=== PATIENT | male | born 1955 | race Caucasian/White ===

== ENCOUNTER 2020-10-03 14:44 | Emergency (ER) | payer OTHER, MEDICARE ==
[~2020-10-03] VITALS: Ht 175.3 cm; Wt 95.2 kg
[~2020-10-03 14:44] MED LIST: ASPI81EC; CEPH500; DOCU100; HYDMOR2 PO; IBUP800 PO; NAPR220 PO; OXYACE5T; PRED10
[2020-10-03] MEDS ORDERED: CEPH500 PO (17:03)
== END 2020-10-03 17:50 | disposition home or self-care (01) ==
LOC: ER 14:44
DX: S62.635B Displaced fracture of distal phalanx of left ring finger, initial encounter for open fracture (principal); W29.8XXA Contact with other powered hand tools and household machinery, initial encounter
CPT/HCPCS: 12001; 96365-59; 99283-25; J0690

== ENCOUNTER 2022-01-01 10:43 | Inpatient (IN) | payer OTHER ==
[~2022-01-01] VITALS: Ht 175.3 cm; Wt 95.2 kg
[~2022-01-01 10:43] MED LIST changes: +CEPH500 PO
[2022-01-01 10:56] LABS: BASOPHILS ABSOLUTE AUTO 0.05 K/mm3 (0.00-0.23); BASOPHILS PERCENT AUTO 1 % (0-2); EOSINOPHILS ABSOLUTE AUTO 0.13 K/mm3 (0.00-0.68); EOSINOPHILS PERCENT AUTO 2 % (0-6); Hematocrit 43.8 % (37.0-53.0); Hemoglobin 15.1 g/dL (13.5-17.5); IMMATURE GRAN ABSOLUTE AUTO 0.04 K/mm3 (0.00-0.10); IMMATURE GRAN PERCENT AUTO 1 % (0-1); LYMPHOCYTES ABSOLUTE AUTO 2.89 K/mm3 (0.84-5.20); LYMPHOCYTES PERCENT AUTO 39 % (21-46); MONOCYTES ABSOLUTE AUTO 0.71 K/mm3 (0.16-1.47); MONOCYTES PERCENT AUTO 10 % (4-13); Mean Corpuscular HGB 30.2 pg (26.0-34.0); Mean Corpuscular HGB Conc 34.5 g/dL (31.5-36.5); Mean Corpuscular Volume 88 fL (80-100); Mean Platelet Volume 10.8 fL (9.1-12.4); NEUTROPHILS ABSOLUTE AUTO 3.58 K/mm3 (1.96-9.15); NEUTROPHILS PERCENT AUTO 48 % (41-73); Platelet Count 173 K/mm3 (150-400); RDW Coefficient Variation 12.8 % (11.7-14.2); RDW Standard Deviation 40.9 fL (35.1-46.3)
[2022-01-01 11:18] LABS: International Normalized Ratio 0.98; Prothrombin Time Results 10.3 Sec (9.7-11.5)
[2022-01-01 11:21] LABS: Albumin, Blood 3.7 g/dL (3.4-5.0); Bilirubin, Total 0.6 mg/dL (0.1-1.0); Bun/Creatinine Ratio 22.9 (12.0-20.0); Calcium, Blood 8.9 mg/dL (8.5-10.1); Creatinine, Blood 0.92 mg/dL (0.60-1.20); Globulin, Blood 3.8 g/dL (2.2-4.0); Potassium, Blood 3.9 mmol/L (3.5-5.5); Total Protein, Blood 7.5 g/dL (6.4-8.2)
[2022-01-01] MEDS ORDERED: TAMS.4ER PO (12:09)
[2022-01-01] MEDS ORDERED: ALLEGRA ALLERGY60 MG PO (12:09)
[2022-01-01] MEDS ORDERED: MONT10T PO (12:09)
[2022-01-01 12:59] LABS: Source, Urine Clean Catch
[2022-01-01 13:01] LABS: Appearance, Urine Clear (Clear); Bilirubin, Urine Neg (Neg); Blood, Urine Neg (Neg); Color, Urine Yellow (P-Yellow); Glucose Qualitative, Urine Neg (Neg); Ketones, Urine Neg (Neg); Leukocyte Esterase, Urine Neg (Neg); Nitrite, Urine Neg (Neg); Protein, Urine Neg (Neg); Urobilinogen, Urine NORM (Normal)
[2022-01-01] MEDS ORDERED: FLUTICASONE-SA1 EAC1 INH (17:42)
[2022-01-01] MEDS ORDERED: MELATONIN5 M1 PO (17:44)
[2022-01-01] MEDS ORDERED: AKWA Tears15 ML (17:44)
[2022-01-01] MEDS ORDERED: AZELASTINE137 MCG/06 (17:46)
[2022-01-01] MEDS ORDERED: ZADITOR5 M1 OP (17:46)
--- NOTE | 2022-01-01 18:41 | NUR ---
SHIFT SUMMARY PT ADMITTED FROM THE ED DUE TO R RIB FX, STERNAL FX, AND PNEUMO. PT DENIES THE NEED FOR NARCOTIC PAIN MEDICATION AND MADE HIS WISHES KNOWN TO THE SURGEON. PT TO GET ANOTHER SET X-RAYS IN THE MORNING. VSS.
[2022-01-01] MEDS ORDERED: Flonase 0.05% N16 GM (21:38)
--- NOTE | 2022-01-02 05:25 | NUR ---
SHIFT SUMMARY NO ACUTE CHANGES OVERNIGHT, PT HAS BEEN BREATHING EASILY ON 2L NC, PT REPORTS ITS HARD TO GET DEEP BREATHS IN DUE TO THE PAIN, BUT DOES NOT REPORT SOB. BREATHING APPEARS E/U. LUNG SOUNDS DIMINISHED. PT ON TENZIN BIOX SATS WNL. PT MEDICATED WITH A MUSCLE RELAXER THIS SHIFT, BUT ADAMANT THAT HE DOES NOT WANT TO TAKE TYLENOL OR NARCOTICS. VITALS ARE STABLE, PLAN IS FOR ANOTHER X-RAY TODAY. BED IN LOWEST POSITION, CALL LIGHT WITHIN REACH.
--- NOTE | 2022-01-02 15:02 | NUR ---
Pt. is awake in bed and welcomes my visit. Pt. is pleasant but mildly unsettled about the prognosis of his collapsed young. Listen empathetically with a calming presence while rapport is established. Pt. displays evidence of being engaged and hopeful. Facilitated a lengthy life review. Prayed with Pt. Pt. shook my hand and verbalized gratitude for the spiritual care visit.
--- NOTE | 2022-01-02 17:01 | NUR ---
AMBULATING IN ROOM AND CLARK WITH WALKER. STEADY GAIT. PT HAS DECLINED OFFERS OF PAIN MEDS OTHER THAN MOTRIN. PT REPORTS PAINFUL IN "RIBS" AND LEFT SHOULDER WITH OVEMENT AND DEEP BREATHING. CONT BIOX IN PLACE, PT DENIES SOB. USING IS HOURLY.
--- NOTE | 2022-01-03 01:30 | NUR ---
assumed care of pt after receiving report from previous RN Catracho. pt sleeping in room, has asked to be left undisturbed. this rn poked head in room, bed in lowest position, call light within reach
--- NOTE | 2022-01-03 03:44 | NUR ---
ambulating in hallway, provided with po fluids, up in chair, a/o x 4, pleasant/cooperative, rates pain at 2/10 prior to ambulation, 3-4/10 following. provided analgesia per mar
--- NOTE | 2022-01-03 10:33 | NUR ---
PATIENT AMBULATING IN CLARK WITH WALKER. PT IS AMBULATING HOLDING HIS DOG ON A LEASH. DISCUSSWD SAFETY WITH PATIENT AND THAT HE SHOULD NOT BE WALKING HIS DOG WHILE AMBULATING DUE TO FALL RISK
--- NOTE | 2022-01-03 14:06 | NUR ---
PATIENT ASSISTED WITH SHOWER, NEW SPLIT GAUZE SPONGE DRESSINGS APPLIED AT [facility] IBSERTION SITE X2
--- NOTE | 2022-01-03 17:44 | NUR ---
PT AMBULATES INDEPENDENTLY WITH USE OF WALKER AND ENCOURAGEMENT TO GET SELF OOB. PT REPORTS WHEN EATING DINNER ROAST BEEF GOT STUCK IN THROAT AND DUE TO PAST ACID REFLUX SURGERY HE HAS TO MAKE SELF THROW UP TO RELIEVE. VOIDING CLEAR YELLOW URINE. PT REPORTS MINIMAL RIB AND SHOULDER PAIN AT REST BUT SHARP PAIN UP TO 10/10 WITH ACTIVITY. PT HAS DECLINED MEDS OTHER THAN MOTRIN. PT DENIES SOB
--- NOTE | 2022-01-03 20:29 | NUR ---
0700- RECEIVED REPORT FROM PREVIOUS SHIFT RN AILEEN, PT SITTING UP IN CHAIR, A/O X 4, PLEASANT/COOPERATIVE, TALKATIVE. PT RATES PAIN AT 3/10 WHEN STILL, 7/10 WHEN MOVING, COUGHING, OR SPASMING. ANALGESIA PER MAR PROVIDED. RT SETTING UP PT'S CPAP.
--- NOTE | 2022-01-04 05:33 | NUR ---
SHIFT SUMMARY ASSUMED CARE OF PATIENT AT 1145 PM. PATIENT ALERT AND ORIENTED WHEN AWAKE. INDEPENDENT IN ROOM EXCEPT FOR HELP TYING HIS GOWN. AMBULATED IN HALLS WITH FWW. SAT UP IN CHAIR FOR A COUPLE HOURS. REPORTS SEVERE RIGHT RIB PAIN WITH COUGH. DECLINES ALL NARCOTICS. GIVEN IBUPROFEN PER EMAR. TOLERATING REGULAR DIET AND LIQUIDS. VOIDING WELL. LS DIM ON RIGHT SIDE. SMALL PNEUMOTHORAX STABLE PER XRAY 01/03/22. PLAN TO DC HOME TODAY. WILL REPORT TO DAY SHIFT RN.
[2022-01-04] MEDS ORDERED: Methocarbamol500 MG PO (12:41)
== END 2022-01-04 12:54 | disposition home or self-care (01) | DRG 200 ==
LOC: ER 10:43 → SURS 10:44
PROVIDERS: Emergency Medicine; ADMIT Surgery
DX: S27.0XXA Traumatic pneumothorax, initial encounter (principal); S22.21XA Fracture of manubrium, initial encounter for closed fracture; S22.41XA Multiple fractures of ribs, right side, initial encounter for closed fracture; J45.909 Unspecified asthma, uncomplicated; N40.0 Benign prostatic hyperplasia without lower urinary tract symptoms; Z98.890 Other specified postprocedural states; Z87.828 Personal history of other (healed) physical injury and trauma; Z79.899 Other long term (current) drug therapy; W11.XXXA Fall on and from ladder, initial encounter
CPT/HCPCS: 36415; 70450; 71045; 71046; 71260; 72125; 74177; 80053; 81003; 83690; 84484; 85025; 85610; 93005; 93010; 94660; 94762; 96372; 96374-59; 97110; 97162; 99285-25; A9270; G0378; J1650; J1885; J7030; Q9967

== ENCOUNTER 2022-10-30 11:31 | Day surgery (SDC) | payer OTHER ==
[~2022-10-30] VITALS: Ht 177.8 cm; Wt 97.1 kg
[~2022-10-30 11:31] MED LIST changes: +AKWA Tears15 ML; +ALLEGRA ALLERGY60 MG PO; +AZELASTINE137 MCG/06; +FLUTICASONE-SA1 EAC1 INH; +Flonase 0.05% N16 GM; +MELATONIN5 M1 PO; +MONT10T PO; +Methocarbamol500 MG PO; +TAMS.4ER PO; +ZADITOR5 M1 OP
[2022-10-30 12:41] VITALS: BP 117/81
--- NOTE | 2022-10-30 12:52 | NUR ---
10/30/22 1252 Paramjit Singh IV REMOVED, SITE WNL
== END 2022-10-30 12:53 | disposition home or self-care (01) ==
LOC: ORSCSDS 11:31
PROVIDERS: Ophthalmology
PROC: 08DJ3ZZ Extraction of Right Lens, Percutaneous Approach (ICD-10-PCS; principal; 2022-10-30 13:00)
DX: H25.11 Age-related nuclear cataract, right eye (principal); G47.33 Obstructive sleep apnea (adult) (pediatric); K21.9 Gastro-esophageal reflux disease without esophagitis; Z79.899 Other long term (current) drug therapy
CPT/HCPCS: J1100; J2250; J2405; J3010; J3301; J7040; V2632

== ENCOUNTER 2023-06-24 14:05 | Emergency (ER) | payer OTHER ==
[~2023-06-24] VITALS: Ht 175.3 cm; Wt 96.2 kg
[2023-06-24 17:35] LABS: Albumin, Blood 3.2 g/dL (3.4-5.0); Albumin/Globulin Ratio 0.9 (0.8-1.8); Bilirubin, Total 0.5 mg/dL (0.1-1.0); Bun/Creatinine Ratio 17.2 (12.0-20.0); Calcium, Blood 8.8 mg/dL (8.5-10.1); Creatinine, Blood 0.87 mg/dL (0.60-1.20); Globulin, Blood 3.6 g/dL (2.2-4.0); Potassium, Blood 4.1 mmol/L (3.5-5.5); Total Protein, Blood 6.8 g/dL (6.4-8.2)
[2023-06-24] MEDS ORDERED: COLCHICINE0.6 MG PO (19:00)
[2023-06-24 19:09] LABS: BASOPHILS ABSOLUTE AUTO 0.06 K/mm3 (0.00-0.23); BASOPHILS PERCENT AUTO 1 % (0-2); EOSINOPHILS ABSOLUTE AUTO 0.17 K/mm3 (0.00-0.68); EOSINOPHILS PERCENT AUTO 2 % (0-6); Hematocrit 43.8 % (37.0-53.0); Hemoglobin 14.6 g/dL (13.5-17.5); IMMATURE GRAN ABSOLUTE AUTO 0.03 K/mm3 (0.00-0.10); IMMATURE GRAN PERCENT AUTO 0 % (0-1); LYMPHOCYTES ABSOLUTE AUTO 2.73 K/mm3 (0.84-5.20); LYMPHOCYTES PERCENT AUTO 35 % (21-46); MONOCYTES ABSOLUTE AUTO 0.98 K/mm3 (0.16-1.47); MONOCYTES PERCENT AUTO 13 % (4-13); Mean Corpuscular HGB 29.6 pg (26.0-34.0); Mean Corpuscular HGB Conc 33.3 g/dL (31.5-36.5); Mean Corpuscular Volume 89 fL (80-100); Mean Platelet Volume 11.3 fL (9.1-12.4); NEUTROPHILS ABSOLUTE AUTO 3.83 K/mm3 (1.96-9.15); NEUTROPHILS PERCENT AUTO 49 % (41-73); Platelet Count 164 K/mm3 (150-400); RDW Standard Deviation 42.1 fL (35.1-46.3); Red Blood Cell Count 4.94 M/mm3 (4.30-5.90)
[2023-06-24 19:17] VITALS: BP 125/65
== END 2023-06-24 19:19 | disposition home or self-care (01) ==
LOC: ER 14:05
PROVIDERS: Emergency Medicine
DX: I31.9 Disease of pericardium, unspecified (principal); Z88.5 Allergy status to narcotic agent; Z79.899 Other long term (current) drug therapy; Z79.51 Long term (current) use of inhaled steroids
CPT/HCPCS: 80053; 83880; 84484; 85025; 99285-25; A9270